=== PATIENT | male | born 1975 | race Two or more races ===

== ENCOUNTER 2019-12-06 19:02 | Inpatient (IN) | payer SELFPAY ==
[~2019-12-06] VITALS: Ht 165.1 cm; Wt 66.9 kg
[2019-12-06 20:00] VITALS: BP 108/72
[2019-12-06] MEDS ORDERED: DEXT 5%/0.45% NACL 1000ML 1,000 ML IV SCH (20:38)
[2019-12-06] MEDS ORDERED: ACETAMINOPHEN 325MG TABLET PO PRN ×2 (20:45)
[2019-12-06] MEDS ORDERED: CLONIDINE 0.1MG TABLET PO PRN (20:45)
[2019-12-06] MEDS ORDERED: ONDANSETRON HCL 4MG/2ML INJ IV PRN (20:45)
[2019-12-06] MEDS: FAMOTIDINE 20MG/2ML VIAL IV SCH (21:26)
[2019-12-06] MEDS: KETOROLAC 30MG/ML VIAL IV PRN (21:27)
[2019-12-06] MEDS: LEVOFLOXACIN 500MG PREMIX 100 ML IV SCH (22:32)
[2019-12-07] VITALS: BP 104/73
[2019-12-07] MEDS: DEXT 5%/0.45% NACL KCL 20MEQ/L 1,000 ML IV SCH ×3 (00:23→20:34)
[2019-12-07] MEDS: KETOROLAC 30MG/ML VIAL IV PRN ×2 (03:40→10:15)
[2019-12-07 04:00] VITALS: BP 115/65
[2019-12-07 08:00] VITALS: BP 106/70
[2019-12-07] MEDS: FAMOTIDINE 20MG/2ML VIAL IV SCH ×2 (08:27→20:33)
[2019-12-07] MEDS ORDERED: POTASSIUM CHLORIDE 20MEQ TABLET SR PO NR (10:30)
[2019-12-07 12:00] VITALS: BP 119/69
[2019-12-07] MEDS: HYDROCODONE/ACETAMINOPHEN 5/325MG TABLET PO PRN ×2 (15:41→20:33)
[2019-12-07 16:00] VITALS: BP 125/83
[2019-12-07 20:00] VITALS: BP 113/80
[2019-12-07] MEDS: LEVOFLOXACIN 500MG PREMIX 100 ML IV SCH (20:34)
[2019-12-08] VITALS: BP 103/71
[2019-12-08] MEDS: HYDROCODONE/ACETAMINOPHEN 5/325MG TABLET PO PRN ×3 (01:30→12:57)
[2019-12-08 04:00] VITALS: BP 107/61
[2019-12-08] MEDS: DEXT 5%/0.45% NACL KCL 20MEQ/L 1,000 ML IV SCH (05:59)
[2019-12-08 07:37] LABS: BASOPHILS % 0.2 % (0.0-2.0); EOSINOPHILS % 0.4 % (0.0-5.0); HEMATOCRIT. 36.3 % (42.0-52.0); HEMOGLOBIN. 12.3 g/dL (14.0-18.0); LYMPHOCYTES % 8.2 % (20.0-50.0); MEAN CORPUSCULAR HEMOGLOBIN 29.4 pg (28.0-32.0); MEAN CORPUSCULAR VOLUME 87.1 fL (80.0-94.0); MEAN PLATELET VOLUME 7.5 fl (7.4-10.4); MONOCYTES % 8.7 % (2.0-8.0); NEUTROPHILS % 82.5 % (40.0-76.0); PLATELET 276 x1000/uL (130-400); RED BLOOD CELL COUNT 4.17 mill/uL (4.7-6.1); RED CELL DISTRIBUTION WIDTH 13.8 % (11.6-14.6)
[2019-12-08 07:53] LABS: CHLORIDE 104 mEq/L (98-107)
[2019-12-08 07:59] LABS: PHOSPHORUS 1.6 mg/dL (2.5-4.9)
[2019-12-08 08:00] VITALS: BP 112/79
[2019-12-08] MEDS: FAMOTIDINE 20MG/2ML VIAL IV SCH (08:55)
[2019-12-08] MEDS ORDERED: HYDROCODONE/ACETAMINOPHEN 5/325MG TABLET PO PRN (09:30)
[2019-12-08] MEDS ORDERED: MORPHINE SULFATE 4 MG/ML CPJ (NOT FOR IM USE) IV PRN (09:30)
[2019-12-08] MEDS ORDERED: MORPHINE SULFATE 2 MG/ML CPJ (NOT FOR IM USE) IV PRN (09:30)
[2019-12-08 12:00] VITALS: BP 115/77
[2019-12-08 12:37] VITALS: BP 115/77
[2019-12-08 12:57] VITALS: BP 115/77
== END 2019-12-08 13:55 | disposition home or self-care (01) | DRG 234 ==
LOC: 6EST 19:02
PROVIDERS: ADMIT Internal Medicine; ATTEND Internal Medicine
PROC: 0DTJ4ZZ Resection of Appendix, Percutaneous Endoscopic Approach (ICD-10-PCS; principal; 2019-12-06)
DX: K35.80 Unspecified acute appendicitis (principal); E87.6 Hypokalemia; E83.51 Hypocalcemia; E87.1 Hypo-osmolality and hyponatremia
CPT/HCPCS: 36415; 74177; 80048; 80053; 83605; 83735; 84100; 85025; 88304; 93005; J1100; J1170; J1885; J1956; J2270; J2405; J2543; J2704; J3490; J7030; Q9967

== ENCOUNTER → 2019-12-06 | Day surgery (SDC) | payer SELFPAY ==
[~2019-12-06] VITALS: Ht 162.6 cm; Wt 66.0 kg
[~2019-12-06] MED LIST: BUPIVACAINE HCL 0.5% (5MG/ML) 50ML ONE; DEXAMETHASONE 4MG/ML 1ML VIAL ONE; DEXT 5%/0.45% NACL KCL 20MEQ/L 1,000 ML IV SCH; HYDROCODONE/ACETAMINOPHEN 5/325MG TABLET PO PRN; HYDROMORPHONE HCL/PF 2MG/ML (OR) ONE; HYDROMORPHONE HCL/PF 2MG/ML CPJ IV PRN; IOHEXOL-300 100 ML BOTTLE ONE; KETOROLAC 30MG/ML VIAL IV STA; LABETALOL 5MG/ML SYR 20 MG/4 ML SYRINGE IV PRN; MEPERIDINE HCL/PF 25MG/ML CPJ IV PRN; MORPHINE SULFATE 2 MG/ML CPJ (NOT FOR IM USE) IV PRN; MORPHINE SULFATE 4 MG/ML CPJ (NOT FOR IM USE) IV ONE; MORPHINE SULFATE 4 MG/ML CPJ (NOT FOR IM USE) IV PRN; ONDANSETRON HCL 4MG/2ML INJ IV ONE; ONDANSETRON HCL 4MG/2ML INJ IV PRN; ONDANSETRON HCL 4MG/2ML INJ IV STA; PIPERACILLIN/TAZOBACTAM 3.375GM/50ML PREMIX IV ONE; PROPOFOL 200MG/20ML VIAL IV ONE; ROCURONIUM BROMIDE 10MG/ML VIAL 5ML IV ONE; SKIN ADHESIVE 0.7 GM EA TOP ONE; SODIUM CHLORIDE 0.9% 1,000 ML IV ONE; SODIUM CHLORIDE 0.9% INJ 3ML FLUSH IVF SCH
[2019-12-06 13:46] LABS: HEMATOCRIT. 42.1 % (42.0-52.0); HEMOGLOBIN. 14.3 g/dL (14.0-18.0); MEAN CORPUSCULAR HEMOGLOBIN 29.5 pg (28.0-32.0); MEAN CORPUSCULAR VOLUME 86.7 fL (80.0-94.0); MEAN PLATELET VOLUME 7.1 fl (7.4-10.4); PLATELET 301 x1000/uL (130-400); RED BLOOD CELL COUNT 4.85 mill/uL (4.7-6.1); RED CELL DISTRIBUTION WIDTH 13.7 % (11.6-14.6)
[2019-12-06 13:53] LABS: CHLORIDE 105 mEq/L (98-107)
[2019-12-06 14:15] LABS: PLATELET ESTIMATE NORMAL
[2019-12-06 16:10] VITALS: BP 131/72
== END | disposition home or self-care (01) ==
LOC: ER 10:50 → EDBEDREQ 16:06 → OR 16:33 → ENRESERV 17:13 → CANBEDREQ 12-07 10:14
PROVIDERS: ATTEND Emergency Medicine
DX: K35.890 Other acute appendicitis without perforation or gangrene (principal); Z79.899 Other long term (current) drug therapy; Z82.49 Family history of ischemic heart disease and other diseases of the circulatory system; Z80.9 Family history of malignant neoplasm, unspecified; Z98.890 Other specified postprocedural states
CPT/HCPCS: 36415; 44970; 74177; 80053; 83605; 83690; 85025; 87040; 88304; 93005; J1100; J1170; J1885; J2270; J2405; J2543; J2704; J3490; J7030; Q9967